=== PATIENT | male | born 1955 | race Caucasian/White ===

== ENCOUNTER 2017-01-13 16:28 | Emergency (ER) | payer BC ==
[2017-01-13] MEDS ORDERED: FLOMAX0.4 M1 PO (18:27)
[2017-01-13] MEDS ORDERED: BACTRIM DS TAB1 EAC2 PO (18:27)
[2017-01-13] MEDS ORDERED: BENTYL10 M1 PO (18:27)
[2017-01-13] MEDS ORDERED: PRINIVIL10 M1 PO (18:28)
[2017-01-13] MEDS ORDERED: LIPITOR20 M1 PO (18:28)
[2017-01-13] MEDS ORDERED: VITAMIN D50000 UNI2 PO (18:28)
[2017-01-13] MEDS ORDERED: FLAGYL500 M1 PO (18:29)
== END 2017-01-13 19:00 ==
LOC: EDMED 16:28
DX: K40.90 Unilateral inguinal hernia, without obstruction or gangrene, not specified as recurrent (principal); I10 Essential (primary) hypertension; Z79.899 Other long term (current) drug therapy